=== PATIENT | female | born 1985 | race Caucasian/White ===

== ENCOUNTER 2016-12-09 15:54 | Emergency (ER) | payer BC ==
--- NOTE | ~2016-12-09 | CT2 ---
[facility] A Service of [facility] & [facility] RADIOLOGY TEXT RESULTS PATIENT: AMOS WILCOX LOCATION: [facility] : 81 UNIT #: [id number] AGE: [address]: Yumiko Bishop APRN SEX: F ORDER DR: [id number] [facility] [address] [place], [place] [address] [id number] MR#: [id number] #: [id number] NAME: AMOS WILCOX : 1985 SEX: F STUDY DATE/TIME: 12/09/2016 15:29 UNIT: [facility] ROOM: STUDY DESCRIPTION: CT Abd and Pelv W Cont Attending Physician: Yumiko Bishop A.P.R.N. Ordering Physician: Ed Steve Elena M.D. Primary Care Physician: Reagan Almaraz M.D. MEDICAL IMAGING REPORT This report is preliminary unless electronic signature is present EXAM CT abdomen and pelvis 12/09/2016 HISTORY Abdomen pain, sharp for 2 days. Right lower quadrant pain, worse with cough. FINDINGS CT of the abdomen and pelvis performed with 100 mL Isovue-370 administered intravenously. Enteric contrast not administered. No comparisons. This CT exam was performed with one or more of the following radiation dose reduction techniques: Automatic exposure control, adjustment of mA and/or kV according to patient size, and iterative reconstruction. The lung bases are clear. Inferior heart and pericardium unremarkable. The liver is somewhat low in overall density, suggesting underlying fatty infiltration. In segment VII of the liver, there is an indeterminate hypodense focus measuring 1 cm in diameter. Indeterminate appearance. In the absence of risk factors, probably benign entities such as hemangioma or complicated cyst. Best further characterized with multiphase contrast-enhanced CT or MRI. There is a geographic area of relative hypodensity in segment IVb of the liver, adjacent to falciform ligament. Most consistent with focal fatty infiltration. The spleen is unremarkable. The gallbladder, pancreas, adrenal glands unremarkable. The kidneys are normal. Small umbilical hernia containing fat without complication. CT PELVIS: No inguinal adenopathy. The urinary bladder is normal. Uterus and right ovary unremarkable. Dominant left ovarian cyst measuring about 2.5 cm in diameter likely the dominant follicle for this menstrual cycle. No free fluid in pelvis. No pelvic or retroperitoneal adenopathy. The distal esophagus, stomach, small bowel are unremarkable. Appendix normal. Colon unremarkable. The vascular structures appear normal in STS. [facility] A Service of [facility] & [facility] RADIOLOGY TEXT RESULTS PATIENT: AMOS WILCOX LOCATION: [facility] : 81 UNIT #: [id number] AGE: [address]: Yumiko Bishop [employer] SEX: F ORDER DR: darby. The bony structures show no acute abnormality. IMPRESSION 1. No suspicious acute abnormality is seen in the abdomen or pelvis. There is a 2.5 cm left ovarian cyst, which is likely the dominant follicle for this menstrual cycle. No free fluid is seen in the pelvis to indicate cyst rupture. Uterus and adnexal regions otherwise unremarkable. 2. Gallbladder, pancreas, appendix normal. 3. Kidneys and collecting systems unremarkable. 4. Fatty infiltration of the liver with an area of focal fatty infiltration in segment IVb of the liver, adjacent to falciform ligament. 5. 1 cm hypodense focus segment VII of the liver. In absence of risk factors, probably a benign finding such as complicated cyst or hemangioma. Indeterminate appearance. Best further characterized with multiphase contrast-enhanced MRI or CT on an elective basis. 6. Small umbilical hernia containing only fat without evidence of complication. Dictated by... Royer Ortiz M.D. THIS IS AN ELECTRONICALLY VERIFIED REPORT Royer Ortiz M.D. at 12/10/2016 2:37 PM ONELIA/melani TD: 12/09/2016 20:07 JOB #: [id number] MEDICAL IMAGING REPORT Page 1 of 1 COPY
[2016-12-09 13:38] LABS: BASOPHIL# 0.1 X10e3 (0-0.3); BASOPHIL% 0.5 % (0-2.5); EOSINOPHIL# 0.1 X10e3 (0-0.7); EOSINOPHIL% 0.9 % (0.0-7.0); HEMATOCRIT 39.1 % (35.0-45.0); HEMOGLOBIN 12.7 gm/dL (12.0-16.0); LYMPHOCYTE# 6.5 X10e3 (1.0-3.5); LYMPHOCYTE% 46.7 % (17.0-45.0); MEAN CELL VOLUME 90.4 FL (83-96); MEAN CORPUSCULAR HEMOGLOBIN 29.4 PG (28-34); MEAN CORPUSCULAR HGB CONC 32.5 g/dL (30-36); MEAN PLATELET VOLUME 8.4 FL (6.5-11.5); MONOCYTE# 0.8 X10e3 (0-1.0); MONOCYTE% 5.8 % (3.0-12.0); NEUTROPHIL# 6.4 X10e3 (1.5-7.1); NEUTROPHIL% 46.1 % (40-75); PLATELET COUNT 262 X10e3 (140-420); RED BLOOD COUNT 4.33 X10e (3.90-5.30); RED CELL DISTRIBUTION WIDTH 14.5 % (11.0-15.5)
[2016-12-09 13:40] LABS: DIFF IND NO
[2016-12-09 14:03] LABS: ALBUMIN SERUM 3.9 g/dL (3.5-5.0); BILIRUBIN, DIRECT 0.1 mg/dL (0.0-0.2); BILIRUBIN,INDIRECT 0.4 mg/dL (0.0-0.9); BILIRUBIN,TOTAL 0.5 mg/dL (0.2-2.0); BUN/CREATININE RATIO 13.75; CALCIUM SERUM 8.9 mg/dL (8.4-10.2); CREATININE SERUM 0.8 mg/dL (0.6-1.4); PROTEIN TOTAL SERUM 7.5 g/dL (6.0-8.3)
[2016-12-09 14:04] LABS: POTASSIUM 2.8 mmol/L (3.5-5.1)
[2016-12-09 14:19] LABS: URINE SOURCE CLEAN CATCH
[2016-12-09 14:28] LABS: URINE APPEARANCE CLEAR; URINE BILIRUBIN NEG (NEG); URINE BLOOD NEG (NEG); URINE COLOR YELLOW; URINE GLUCOSE NEG (NEG); URINE KETONE NEG (NEG); URINE LEUKOCYTE ESTERASE NEG (NEG); URINE NITRATE NEG (NEG); URINE PH 6.5 (5-8); URINE PROTEIN NEG (NEG); URINE SPECIFIC GRAVITY 1.017 (1.003-1.035); URINE UROBILINOGEN 0.2 MG/DL (NEG)
[2016-12-09 14:35] LABS: CULTURE INDICATED? NO
== END 2016-12-09 17:09 | disposition home or self-care (01) ==
LOC: CED 15:54
DX: R93.2 Abnormal findings on diagnostic imaging of liver and biliary tract (principal); E87.6 Hypokalemia; Z88.1 Allergy status to other antibiotic agents; F17.210 Nicotine dependence, cigarettes, uncomplicated
CPT/HCPCS: 36415; 74177; 80048; 80076; 81003; 83690; 84703; 85025; 96374; 96375; 99284; J2270; J2405; Q9967